=== PATIENT | male | born 1985 | race Two or more races ===

== ENCOUNTER 2016-09-22 07:38 | Day surgery (SDC) | payer BC ==
[2016-09-22 08:46] LABS: BASO % 0.3 % (0-2); EOS % 0.8 % (0-7); EOSINOPHIL ABSOLUTE COUNT 0.1 tho/cmm (0.0-0.7); HCT-HEMATOCRIT 49.6 % (36.0-53.5); HGB-HEMOGLOBIN 17.1 gm/dl (13.5-17.0); LYMPH % 29.1 % (20-45); LYMPH ABSOLUTE COUNT 1.8 tho/cmm (0.8-4.5); MCH (MEAN CORPUSCULAR HGB) 31.1 pg (28.0-32.0); MCHC MEAN CORPUSCULAR HGB CONC 34.5 % (32.0-36.0); MCV (MEAN CELL VOLUME) 90.2 fl (82.0-96.0); MONO % 8.1 % (0-12); MONOCYTE ABSOLUTE COUNT 0.5 tho/cmm (0.0-1.2); NEUTROPHIL ABSOLUTE COUNT 3.7 tho/cmm (1.6-8.0); NEUTROPHIL-AUTOMATED 3.7 tho/cmm (1.6-8.0); NEUTROPHILS % 61.7 % (40-80); PLATELET COUNT 240 tho/cmm (150-450); PROTHROMBIN TIME 11.2 SECONDS (9.0-13.6)
[2016-09-22] MEDS ORDERED: ATIVAN1 M2 PO (08:47)
[2016-09-22] MEDS ORDERED: COLCRYS0.6 M1 PO (08:48)
[2016-09-22] MEDS ORDERED: IBUPROFEN200 M2 PO (08:48)
[2016-09-22] MEDS ORDERED: INDOMETHACIN50 M1 PO (08:49)
[2016-09-22 08:58] LABS: ANION GAP 12 mmol/L (0-20); BLOOD UREA NITROGEN 10 mg/dl (6-24); CALCIUM 9.4 mg/dl (8.5-10.5); CARBON DIOXIDE-VENOUS 32 mmol/L (22-32); CHLORIDE 103 mmol/l (96-110); CHOLESTEROL 158 mg/dl (120-200); CREATININE 1.05 mg/dl (0.60-1.30); GLUCOSE 76 mg/dL (70-110); HDL CHOLESTEROL 65 mg/dl (40-60); LDL CHOLESTEROL 78 mg/dl (0-99); POTASSIUM 3.9 mmol/L (3.7-5.1); SODIUM 143 mmol/L (135-145); TRIGLYCERIDES 77 mg/dl (<149); VLDL 15 mg/dl (0-30); eGFR VALUE FOR BLACK >90 mL/Min
== END 2016-09-22 15:00 ==
LOC: CARD 07:38 → SHSC 07:39
PROVIDERS: Internal Medicine Cardiovascular Disease
PROC: 4A023N7 Measurement of Cardiac Sampling and Pressure, Left Heart, Percutaneous Approach (ICD-10-PCS; principal; 2016-09-22)
PROC: B2111ZZ Fluoroscopy of Multiple Coronary Arteries using Low Osmolar Contrast (ICD-10-PCS; 2016-09-22)
DX: I20.0 Unstable angina (principal); Z79.899 Other long term (current) drug therapy; Z91.013 Allergy to seafood; Z82.49 Family history of ischemic heart disease and other diseases of the circulatory system
CPT/HCPCS: C1894; J1200; J1644; J2250; J2930; J3010; J7030; Q9967